=== PATIENT | female | born 1985 | race Asian ===

== ENCOUNTER 2020-06-20 18:17 | Emergency (ER) | payer OTHER ==
--- NOTE | 2020-06-20 18:41 | TELE ---
HPI Do you have fever,cough or shortness of breath?: No (fatigue since yesterday) - General Reason For Visit: COVID TESTING History Source: Patient Exam Limitations: No Limitations - History of Present Illness Timing/Duration: 24 hours Severity: reports: mild Associated Symptoms: denies: denies symptoms 06/20/20 [id number] 34-year-old female presents to [facility] for COVID testing. Patient states was at a republican this past weekend in [place] where she was around 2 people that tested positive a few days ago. Patient does complain of fatigue and mild body ache since yesterday patient denies medical history of smoking history. Patient denies any other recent sick contacts or travel Past History - Travel History Traveled outside of the country in the last 30 days: No Close contact w/someone who was outside of country & ill: No - Psycho-Social/Smoking History Patient Lives Alone: No Lives with/in: spouse/SO Review of Systems - Review of Systems Able to Perform ROS?: Yes Limited Kyrgyz proficient: No Constitutional: Yes: Weakness HEENTM: No: Symptoms Reported Respiratory: No: Symptoms reported Cardiac (ROS): No: Symptoms Reported ABD/GI: No: Symptoms Reported : No: Symptoms Reported Musculoskeletal: No: Symptoms Reported Integumentary: No: Symptoms Reported Neurological: Yes: Weakness Endocrine: No: Symptoms Reported Hematologic/Lymphatic: No: Symptoms Reported *Physical Exam - Physical Exam General Appearance: Yes: Nourished, Appropriately Dressed. No: Apparent Distress HEENT: negative: Pale Conjunctivae Neck: positive: Supple Respiratory/Chest: negative: Respiratory Distress Gastrointestinal/Abdominal: negative: Distended Extremity: positive: Normal Inspection Integumentary: positive: Normal Color Neurologic: positive: Motor Strength 5/5 (ambulatory) - Medical Decision Making 06/20/20 18:39 Chief complaint: Fatigue and mild weakness since yesterday. Patient had indirect exposure to someone that was positive at a republican over this weekend. No medical history no smoking history. Plan COVID test ordered Discharge Diagnosis at time of Disposition: Encounter by telehealth for suspected COVID-19 - Referrals - Patient Instructions - Discharge Disposition: HOME Condition at time of Disposition: Good
== END 2020-06-20 18:43 | disposition home or self-care (01) ==
LOC: JVIRT 18:17
DX: Z11.59 Encounter for screening for other viral diseases (principal)
CPT/HCPCS: Q3014-GT; U0003